=== PATIENT | female | born 2000 | race Caucasian/White ===

== ENCOUNTER 2020-10-01 20:51 | Emergency (ER) | payer OTHER ==
[~2020-10-01] VITALS: Ht 170.2 cm; Wt 74.9 kg
[2020-10-01] MEDS ORDERED: NS 1,000 ML IV ONE (22:05)
[2020-10-01 22:30] LABS: BASO % 0.5 % (0.0-1.0); EOS # 0.2 10^3/uL (0.0-0.5); EOS % 3.5 % (0.0-3.0); HEMATOCRIT 28.1 % (36.0-47.0); HEMOGLOBIN 9.3 g/dl (12.0-15.5); LYMPH # 1.6 10^3/uL (1.5-5.0); LYMPH % 36.8 % (24.0-44.0); MEAN CORPUSCULAR HEMOGLOBIN 30.6 pg (27.0-33.0); MEAN CORPUSCULAR HGB CONC 33.1 g/dl (32.0-36.5); MEAN CORPUSCULAR VOLUME 92.4 fl (80.0-96.0); MONO # 0.4 10^3/uL (0.0-0.8); MONO % 9.1 % (2.0-8.0); NEUTROPHILS # 2.1 10^3/uL (1.5-8.5); NEUTROPHILS % 49.9 % (36.0-66.0); PLATELET COUNT, AUTOMATED 164 10^3/uL (150-450); RED BLOOD COUNT 3.04 10^6/uL (4.00-5.40); WHITE BLOOD COUNT 4.3 10^3/uL (4.0-10.0)
[2020-10-01 23:30] LABS: BLOOD UREA NITROGEN 12 MG/DL (7-18); CALCIUM LEVEL 5.6 MG/DL (8.5-10.1); CARBON DIOXIDE LEVEL 21 MEQ/L (21-32); CHLORIDE LEVEL 127 MEQ/L (98-107); CK-MB VALUE MASS 1.4 NG/ML (<3.6); CPK CREATINE PHOSPHOKINASE 103 U/L (26-192); CREATININE FOR GFR 0.43 MG/DL (0.55-1.30); GLOMERULAR FILTRATION RATE > 60.0 (>60); GLUCOSE, FASTING 54 MG/DL (70-100); MAGNESIUM LEVEL 1.1 MG/DL (1.8-2.4); MB/CK RELATIVE INDEX 1.36 (< OR =4); POTASSIUM SERUM 2.4 MEQ/L (3.5-5.1); SODIUM LEVEL 159 MEQ/L (136-145); TROPONIN I < 0.02 NG/ML (< 0.10)
[2020-10-02 01:15] LABS: BLOOD UREA NITROGEN 17 MG/DL (7-18); CALCIUM LEVEL 8.5 MG/DL (8.5-10.1); CARBON DIOXIDE LEVEL 28 MEQ/L (21-32); CHLORIDE LEVEL 107 MEQ/L (98-107); GLOMERULAR FILTRATION RATE > 60.0 (>60); GLUCOSE, FASTING 84 MG/DL (70-100); POTASSIUM SERUM 3.7 MEQ/L (3.5-5.1); SODIUM LEVEL 142 MEQ/L (136-145)
[2020-10-02 01:23] LABS: HCG, SERUM QUALITATIVE NEGATIVE (NEGATIVE)
[2020-10-02 01:30] VITALS: BP 125/64
--- NOTE | 2020-10-02 01:36 | ECGEPIP ---
[facility] - ED Test Date: 2020-10-01 Pat Name: MICHAEL MAGALLON Department: Room: - Gender: Female Manager In Training: LR : 2000 Requested By: ANTONI Mcnamaar Order Number: [id number] Reading MD: Raza Alvarez Measurements Intervals [place] Rate: 71 P: 29 VA: 142 QRS: 72 QRSD: 76 T: 16 QT: 386 QTc: 419 Interpretive Statements Normal sinus rhythm with sinus arrhythmia NONSPECIFIC T WAVE ABNORMALITY(S) BASELINE ARTIFACT AFFECTS INTERPRETATION NO PRIORS FOR COMPARISON Electronically Signed on 10-02-2020 1:36:23 EDT by Raza Alvarez
--- NOTE | 2020-10-02 02:22 | REPVR ---
PROCEDURE INFORMATION: Exam: XR Chest Exam date and time: 10/02/20 (1:44am) Age: 20 years old Clinical indication: Chest pain TECHNIQUE: Imaging protocol: Portable CXR Views: 1 view COMPARISON: No relevant prior studies available FINDINGS: Lungs: Unremarkable. No consolidation. Pleural spaces: Unremarkable. No pleural effusions. No pneumothorax. Heart/Mediastinum: Unremarkable. No cardiomegaly. Bones/joints: Unremarkable. IMPRESSION: No acute findings. Clear lung shay. Electronically signed by: Lynda Sierra On 10/02/2020 02:23:06 AM
== END 2020-10-02 03:20 | disposition home or self-care (01) ==
LOC: M ED 20:51
DX: R00.2 Palpitations (principal)

== ENCOUNTER 2020-10-13 20:20 | Emergency (ER) | payer OTHER ==
[~2020-10-13] VITALS: Ht 170.2 cm; Wt 76.0 kg
[2020-10-13] MEDS ORDERED: NS 1,000 ML IV ONE (21:50)
--- NOTE | 2020-10-13 22:44 | ECGEPIP ---
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
[2020-10-13 23:18] LABS: BASO % 0.7 % (0.0-1.0); EOS # 0.2 10^3/uL (0.0-0.5); EOS % 4.3 % (0.0-3.0); HEMATOCRIT 39.3 % (36.0-47.0); HEMOGLOBIN 13.4 g/dl (12.0-15.5); LYMPH # 2.5 10^3/uL (1.5-5.0); LYMPH % 44.4 % (24.0-44.0); MEAN CORPUSCULAR HEMOGLOBIN 31.2 pg (27.0-33.0); MEAN CORPUSCULAR HGB CONC 34.1 g/dl (32.0-36.5); MEAN CORPUSCULAR VOLUME 91.4 fl (80.0-96.0); MONO # 0.5 10^3/uL (0.0-0.8); MONO % 8.2 % (2.0-8.0); NEUTROPHILS # 2.4 10^3/uL (1.5-8.5); NEUTROPHILS % 42.2 % (36.0-66.0); PLATELET COUNT, AUTOMATED 230 10^3/uL (150-450); WHITE BLOOD COUNT 5.6 10^3/uL (4.0-10.0)
[2020-10-13] MEDS ORDERED: ISOVUE-370 76% 100ML VIAL As Ordered ONE (23:23)
[2020-10-13 23:36] LABS: ERYTHROCYTE SEDIMENTATION RATE 6 mm/hr (0-20)
--- NOTE | 2020-10-13 23:36 | REPVR ---
PROCEDURE INFORMATION: Exam: US Duplex Lower Extremity Veins, Bilateral Exam date and time: 10/13/2020 10:43 PM Age: 20 years old Clinical indication: Pain; Foot; Bilateral; Additional info: Bilateral leg pain, SOB, palpitations TECHNIQUE: Imaging protocol: Real-time duplex ultrasound of the extremities with 2-D schroeder scale, color Doppler flow and spectral waveform analysis with image documentation. Complete exam focused on the bilateral lower extremity veins. COMPARISON: No relevant prior studies available. FINDINGS: Right deep veins: Unremarkable. The common femoral, femoral and popliteal veins are patent without thrombus. Normal Doppler waveforms. Normal compressibility and/or augmentation response. Right superficial veins: Saphenofemoral junction is patent without thrombus. Left deep veins: Unremarkable. The common femoral, femoral and popliteal veins are patent without thrombus. Normal Doppler waveforms. Normal compressibility and/or augmentation response. Left superficial veins: Saphenofemoral junction is patent without thrombus. Soft tissues: Unremarkable. IMPRESSION: No sonographic evidence of deep vein thrombosis. Electronically signed by: Dawit Gupta On 10/13/2020 23:36:47 PM
[2020-10-13 23:46] LABS: HCG, SERUM QUALITATIVE NEGATIVE (NEGATIVE)
[2020-10-13 23:56] LABS: BLOOD UREA NITROGEN 17 MG/DL (7-18); CALCIUM LEVEL 9.2 MG/DL (8.5-10.1); CARBON DIOXIDE LEVEL 32 MEQ/L (21-32); CHLORIDE LEVEL 105 MEQ/L (98-107); CK-MB VALUE MASS < 1.0 NG/ML (<3.6); CPK CREATINE PHOSPHOKINASE 141 U/L (26-192); CREATININE FOR GFR 0.73 MG/DL (0.55-1.30); GLOMERULAR FILTRATION RATE > 60.0 (>60); GLUCOSE, FASTING 87 MG/DL (70-100); MAGNESIUM LEVEL 2.1 MG/DL (1.8-2.4); MB/CK RELATIVE INDEX 0.71 (< OR =4); POTASSIUM SERUM 3.9 MEQ/L (3.5-5.1); SODIUM LEVEL 140 MEQ/L (136-145); TROPONIN I < 0.02 NG/ML (< 0.10)
--- NOTE | 2020-10-14 00:20 | REPVR ---
PROCEDURE INFORMATION: Exam: CTA Chest With Contrast Exam date and time: 10/13/2020 9:48 PM Age: 20 years old Clinical indication: Other: Palpitations; Additional info: R/O pe TECHNIQUE: Imaging protocol: Computed tomographic angiography of the chest with contrast. Axial, coronal and sagittal reformatted images were created and reviewed. 3D rendering (Not supervised by radiologist): MIP and/or 3D reconstructed images were created by the technologist. Radiation optimization: All CT scans at this facility use at least one of these dose optimization techniques: automated exposure control; mA and/or kV adjustment per patient size (includes targeted exams where dose is matched to clinical indication); or iterative reconstruction. Contrast material: ISO; Contrast volume: 75 ml; Contrast route: INTRAVENOUS (IV); COMPARISON: CR PORTABLE CHEST X-RAY 10/02/2020 1:43 AM FINDINGS: Pulmonary arteries: Contrast opacification satisfactory. No intraluminal filling defect. Aorta: Unremarkable. No aneurysm or dissection. Lungs: Unremarkable. No consolidation. No mass. Pleural spaces: Unremarkable. No pneumothorax. No pleural effusion. Heart: Unremarkable. No cardiomegaly. No pericardial effusion. Lymph nodes: No pathologically enlarged lymph nodes. Spleen: Coarse calcified splenic granuloma. Bones/joints: No acute osseous abnormality. Soft tissues: Unremarkable. IMPRESSION: 1. No CT evidence of pulmonary embolism. 2. Additional findings, as above. Electronically signed by: Dawit Gupta On 10/14/2020 00:21:09 AM
[2020-10-14 01:45] VITALS: BP 103/56
== END 2020-10-14 02:52 | disposition home or self-care (01) ==
LOC: M ED 20:20
DX: R00.2 Palpitations (principal); I73.00 Raynaud's syndrome without gangrene; R07.9 Chest pain, unspecified
CPT/HCPCS: 71275; 80048; 82550; 82553; 83735; 84439; 84443; 84484; 84703; 85025; 85652; 86140; 93005; 93041; 93970; 94760; 96360; 96361; 99285; Q9967

== ENCOUNTER → 2021-04-23 | Outpatient (REF) | payer OTHER ==
[2021-04-23 18:16] LABS: BASO # 0.1 10^3/uL (0.0-0.2); BASO % 1.1 % (0.0-1.0); EOS # 0.3 10^3/uL (0.0-0.5); HEMATOCRIT 43.9 % (36.0-47.0); HEMOGLOBIN 14.7 g/dl (12.0-15.5); LYMPH # 1.7 10^3/uL (1.5-5.0); LYMPH % 31.3 % (24.0-44.0); MEAN CORPUSCULAR HEMOGLOBIN 30.5 pg (27.0-33.0); MEAN CORPUSCULAR HGB CONC 33.5 g/dl (32.0-36.5); MEAN CORPUSCULAR VOLUME 91.1 fl (80.0-96.0); MONO # 0.4 10^3/uL (0.0-0.8); MONO % 7.7 % (2.0-8.0); NEUTROPHILS # 2.9 10^3/uL (1.5-8.5); NEUTROPHILS % 53.9 % (36.0-66.0); PLATELET COUNT, AUTOMATED 317 10^3/uL (150-450); RED BLOOD COUNT 4.82 10^6/uL (4.00-5.40); WHITE BLOOD COUNT 5.3 10^3/uL (4.0-10.0)
[2021-04-23 18:44] LABS: ALBUMIN 4.5 GM/DL (3.2-5.2); ALT/SGPT 29 U/L (12-78); BILIRUBIN,TOTAL 0.3 MG/DL (0.2-1.0); BLOOD UREA NITROGEN 18 MG/DL (7-18); CALCIUM LEVEL 9.7 MG/DL (8.5-10.1); CARBON DIOXIDE LEVEL 30 MEQ/L (21-32); CHLORIDE LEVEL 102 MEQ/L (98-107); COMPLEMENT C3 93 MG/DL (90-180); COMPLEMENT C4 21 MG/DL (10-40); CPK CREATINE PHOSPHOKINASE 164 U/L (26-192); CREATININE FOR GFR 0.88 MG/DL (0.55-1.30); GLOMERULAR FILTRATION RATE > 60.0 (>60); GLUCOSE, FASTING 86 MG/DL (70-100); LDH LACTATE DEHYDROGENASE 192 U/L (84-246); POTASSIUM SERUM 4.6 MEQ/L (3.5-5.1); SODIUM LEVEL 139 MEQ/L (136-145); TOTAL PROTEIN 7.8 GM/DL (6.4-8.2)
[2021-04-23 18:54] LABS: ERYTHROCYTE SEDIMENTATION RATE 3 mm/hr (0-20)
== END ==
LOC: M SFHCRHEU 10:32
PROVIDERS: ATTEND Internal Medicine Rheumatology
DX: R76.8 Other specified abnormal immunological findings in serum (principal); R06.02 Shortness of breath; R60.9 Edema, unspecified

== ENCOUNTER → 2021-04-23 | Outpatient (CLI) | payer OTHER ==
--- NOTE | 2021-04-23 11:58 | REP ---
INDICATION: TERESA POSITIVE. COMPARISON: None TECHNIQUE: Four views each hand FINDINGS: Right hand: The joint spaces are symmetric and well maintained throughout. There is no periarticular osteopenia, marginal erosions, or marginal osteophytes. There is no acute fracture, dislocation, or subluxation. Left hand: The joint spaces are symmetric and well maintained throughout. There is no periarticular osteopenia, marginal erosions, marginal osteophytes. There is no acute fracture, dislocation, or subluxation. IMPRESSION: Negative hand bilateral. <Electronically signed by Arnoldo Mota > 04/23/21 [id number]
--- NOTE | 2021-04-23 15:33 | REP ---
INDICATION: TERESA POSITIVE. COMPARISON: None. TECHNIQUE: Four views bilateral FINDINGS: Bilateral: The joint spaces are symmetric and relatively well maintained. There is no evidence of acute fracture or destructive osseous lesion. IMPRESSION: Within normal limits bilateral <Electronically signed by Arnoldo Mota > 04/23/21 [id number]
== END ==
LOC: M RAD 09:56
PROVIDERS: ATTEND Internal Medicine Rheumatology
DX: R76.8 Other specified abnormal immunological findings in serum (principal)

== ENCOUNTER → 2021-05-06 | Outpatient (CLI) | payer OTHER ==
--- NOTE | 2021-05-06 08:35 | PFTRPT ---
Site: [facility], [address] [place] [id number], [id number] ID: [id number] Name: PRINCESS MAGALLON Visit Date: 05/06/2021 Second ID: [id number] Referring Doctor: Kirti Maloney M.D. Reviewing Doctor: Arnulfo Braswell MD Fha Underwriter: Tiny INGRAM RRT Age: 20 : 2000 Sex: Female Race: Height: 67.00 Inches Weight: 160.00 Lbs BSA: 1.84 Order IDs: [id number] Requested Test(s): <RESP-PFT.PFT B/A> Diagnosis: R06.02 test meet the ATS standards for acceptability and repeatability. Pt was given four puffs of albuterol for post bronchodilator. Review Status: Not Reviewed Pre-Bronch Post-Bronch Pred Actual %Pred Actual %Chng SPIROMETRY FVC (L) 4.16 3.64 87 3.70 1 FEV1 (L) 3.59 3.14 87 3.25 3 FEV1/FVC (%) 86 86 100 88 1 FEF 25% (L/sec) 6.21 5.17 83 5.53 7 FEF 50% (L/sec) 4.74 4.14 87 4.14 FEF 75% (L/sec) 2.09 1.82 86 2.29 26 FEF 25-75% (L/sec) 3.88 3.54 91 3.81 7 FEF Max (L/sec) 7.34 5.17 70 5.54 7 FIVC (L) 3.58 3.60 FIF 50% (L/sec) 4.31 3.32 77 3.84 15 FIF Max (L/sec) 3.60 3.93 8 MVV (L/min) 119 93 78 Expiratory Time (sec) 3.43 3.15 -8 Back Extrap Vol (L) 0.12 0.13 10 Time To FEFmax (sec) 0.173 0.158 -8 LUNG VOLUMES SVC (L) 4.13 3.61 87 IC (L) 2.49 2.64 106 ERV (L) 1.64 0.96 58 TGV (L) 3.01 2.57 85 RV (Pleth) (L) 1.37 1.61 117 TLC (Pleth) (L) 5.50 5.22 94 RV/TLC (Pleth) (%) 23 31 133 DIFFUSION DLCOunc (ml/min/mmHg) 27.08 24.06 88 DL/VA (ml/min/mmHg/L) 4.92 5.45 110 VA (L) 5.50 4.42 80 BHT (sec) 9.84 IVC (L) 3.54 TLC (SB) (L) 4.57 AIRWAYS RESISTANCE Raw (cmH2O/L/s) 1.86 0.90 48 Gaw (L/s/cmH2O) 1.03 1.11 107 sRaw (cmH2O*s) 4.76 2.26 47 sGaw (1/cmH2O*s) 0.20 0.44 221
== END ==
LOC: M CARPUL 08:02
PROVIDERS: ATTEND Internal Medicine Rheumatology
DX: R06.02 Shortness of breath (principal)

== ENCOUNTER 2021-09-02 08:08 | Emergency (ER) | payer OTHER ==
[~2021-09-02] VITALS: Ht 170.2 cm; Wt 73.9 kg
[2021-09-02] MEDS ORDERED: DULO40CA (08:27)
[2021-09-02] MEDS ORDERED: NS 1,000 ML IV ONE (10:05)
[2021-09-02] MEDS ORDERED: KETOROLAC 30 MG/ML 1ML VIAL IV ONE (10:05)
[2021-09-02] MEDS ORDERED: ONDANSETRON 4MG/2ML VIAL IV ONE (10:05)
[2021-09-02 10:07] LABS: BASO % 0.7 % (0.0-1.0); EOS # 0.1 10^3/uL (0.0-0.5); EOS % 2.2 % (0.0-3.0); HEMOGLOBIN 15.1 g/dl (12.0-15.5); LYMPH # 1.2 10^3/uL (1.5-5.0); LYMPH % 29.1 % (24.0-44.0); MEAN CORPUSCULAR HEMOGLOBIN 30.7 pg (27.0-33.0); MEAN CORPUSCULAR HGB CONC 33.6 g/dl (32.0-36.5); MEAN CORPUSCULAR VOLUME 91.5 fl (80.0-96.0); MONO # 0.3 10^3/uL (0.0-0.8); MONO % 8.1 % (2.0-8.0); NEUTROPHILS # 2.4 10^3/uL (1.5-8.5); NEUTROPHILS % 59.7 % (36.0-66.0); PLATELET COUNT, AUTOMATED 297 10^3/uL (150-450); RED BLOOD COUNT 4.92 10^6/uL (4.00-5.40); WHITE BLOOD COUNT 4.1 10^3/uL (4.0-10.0)
[2021-09-02 10:52] LABS: ALBUMIN 4.2 GM/DL (3.2-5.2); ALT/SGPT 37 U/L (12-78); BILIRUBIN,TOTAL 0.5 MG/DL (0.2-1.0); BLOOD UREA NITROGEN 13 MG/DL (7-18); CALCIUM LEVEL 9.3 MG/DL (8.5-10.1); CARBON DIOXIDE LEVEL 29 MEQ/L (21-32); CHLORIDE LEVEL 106 MEQ/L (98-107); CREATININE FOR GFR 0.82 MG/DL (0.55-1.30); GLOMERULAR FILTRATION RATE > 60.0 (>60); GLUCOSE, FASTING 67 MG/DL (70-100); LIPASE 97 U/L (73-393); POTASSIUM SERUM 4.7 MEQ/L (3.5-5.1); SODIUM LEVEL 137 MEQ/L (136-145); TOTAL PROTEIN 7.7 GM/DL (6.4-8.2)
[2021-09-02] MEDS ORDERED: ONDA4TAB6 PO (11:34)
[2021-09-02 11:48] VITALS: BP 107/62
== END 2021-09-02 11:54 | disposition home or self-care (01) ==
LOC: M ED 08:08
DX: R10.9 Unspecified abdominal pain (principal); R11.0 Nausea; R19.7 Diarrhea, unspecified; Z88.1 Allergy status to other antibiotic agents
CPT/HCPCS: 80053; 81001; 83690; 84702; 85025; 96361; 96374; 99283; J1885; J2405